=== PATIENT | female | born 1995 | race Hispanic/Latino ===

== ENCOUNTER 2017-12-16 02:53 | Emergency (ER) | payer SELFPAY ==
[~2017-12-16] VITALS: Ht 154.9 cm; Wt 88.9 kg
[2017-12-16] MEDS ORDERED: HYDROCODONE/APAP 10MG-325MG TAB PO ONE (03:45)
[2017-12-16] MEDS ORDERED: KETOROLAC TROMETHAMINE 60 MG/2 ML VIAL IM ONE (03:45)
== END 2017-12-16 05:18 | disposition left against medical advice (07) ==
LOC: ER 02:53
DX: R30.0 Dysuria (principal)
CPT/HCPCS: 81025